=== PATIENT | female | born 1990 | race Caucasian/White ===

== ENCOUNTER → 2017-03-16 | Outpatient (CLI) | payer BC | LOC: COL.RAD 08:10 | DX: K82.8 Other specified diseases of gallbladder (principal) | CPT/HCPCS: A9537; J2805 ==

== ENCOUNTER → 2019-08-04 | Outpatient (CLI) | payer BC | LOC: COL.RAD 08:14 | DX: M25.511 Pain in right shoulder (principal); Z98.890 Other specified postprocedural states ==

== ENCOUNTER → 2020-04-01 | Outpatient (CLI) | payer BC | LOC: COL.LAB 12:27 | DX: K58.9 Irritable bowel syndrome, unspecified (principal) ==